=== PATIENT | male | born 1965 | race Hispanic/Latino ===

== ENCOUNTER 2018-01-04 17:04 | Emergency (ER) | payer OTHER ==
[2018-01-04 17:13] VITALS: BMI 33.9
[2018-01-04 17:21] VITALS: TEMP 97.4
[2018-01-04 18:04] LABS: BASO # 0.1 K/uL (0.0-0.2); BASO % 0.9 % (0.0-2.0); EOS # 0.2 K/uL (0.0-0.7); EOS % 1.9 % (0.0-4.0); LYMPH # 3.5 K/uL (1.0-4.3); LYMPH % 32.4 % (20.0-40.0); MEAN CELL VOLUME 83.3 fL (80.0-94.0); MEAN CORPUSCULAR HEMOGLOBIN 29.7 pg (27.0-31.0); MEAN CORPUSCULAR HGB CONC 35.6 g/dL (33.0-37.0); MEAN PLATELET VOLUME 7.5 fL (7.2-11.7); MONO # 1.1 K/uL (0.0-0.8); MONO % 9.9 % (0.0-10.0); NEUT # 5.9 K/uL (1.8-7.0); NEUT % 54.9 % (50.0-75.0); NRBC % 0.1 % (0.0-2.0); RBC 5.61 Mil/uL (4.40-5.90); RED CELL DISTRIBUTION WIDTH 13.7 % (11.5-14.5); WHITE BLOOD COUNT 10.8 K/uL (4.8-10.8)
[2018-01-04 18:05] LABS: HEMOGLOBIN 16.7 g/dL (12.0-18.0)
[2018-01-04 18:06] LABS: ALB/GLOB RATIO 1.1 (1.0-2.1); ALBUMIN 4.2 g/dL (3.5-5.0); ALT/SGPT 39 U/L (21-72); AST/SGOT 28 U/L (17-59); BLOOD UREA NITROGEN 11 mg/dL (9-20); CALCIUM 9.1 mg/dl (8.6-10.4); GFR AFRICAN-AMERICAN > 60; GFR NON-AFRICAN AMERICAN > 60; HDL CHOLESTEROL 41 mg/dL (30-70)
[2018-01-04 18:09] LABS: PARTIAL THROMBOPLASTIN TIME 35 SECONDS (21-34); PROTHROMBIN TIME 10.7 SECONDS (9.7-12.2)
[2018-01-04 18:12] LABS: D DIMER < 200 ng/mlDDU (0-243)
[2018-01-04 18:17] LABS: LDL CHOLESTEROL 126 mg/dL (0-129)
[2018-01-04 18:18] LABS: B-TYPE NATRIURETIC PEPTIDE 22.8 pg/mL (0-900); CK-MB 0.35 ng/mL (0.0-3.38)
[2018-01-04] MEDS ORDERED: Enalaprilat 2.5 MG/2 ML IVP STA (20:33)
[2018-01-04] MEDS ORDERED: Enalaprilat 2.5 MG/2 ML ONE (20:42)
[2018-01-04 22:32] VITALS: O2SAT 100
[2018-01-04 23:53] LABS: CK-MB 0.27 ng/mL (0.0-3.38)
[2018-01-05 00:02] VITALS: BP 122/92; PULSE 64; RESP 18
--- NOTE | 2018-01-05 00:02 | C.PDOC ---
Time Seen by Provider: 01/04/18 17:37 Chief Complaint (Nursing): Chest Pain History Per: Patient, Family Onset/Duration Of Symptoms: Hrs ([employer]) Current Symptoms Are (Timing): Better Severity: Moderate Quality: "Pain" Modifying Factors: Other Indicated Below Exacerbating Factors: None Alleviating Factors: None Additional History Per: Prior Records Past Medical History Reviewed: Historical Data, Nursing Documentation, Vital Signs Vital Signs: Last Vital Signs Temp 97.4 F L 01/04/18 17:12 Pulse 65 01/04/18 22:31 Resp 16 01/04/18 22:31 BP 136/94 H 01/04/18 22:31 Pulse Ox 100 01/04/18 22:31 - Medical History PMH: Asthma, COPD, HTN Family History: States: Unknown Family Hx - Social History Hx Tobacco Use: No Hx Alcohol Use: No Hx Substance Use: No - Immunization History Hx Tetanus Toxoid Vaccination: No Hx Influenza Vaccination: No Hx Pneumococcal Vaccination: No Review Of Systems Except As Marked, All Systems Reviewed And Found Negative. Constitutional: Negative for: Fever, Weakness Cardiovascular: Positive for: Chest Pain Respiratory: Negative for: Shortness of Breath, Hemoptysis Gastrointestinal: Negative for: Nausea, Vomiting, Abdominal Pain Skin: Negative for: Rash Neurological: Negative for: Weakness Physical Exam - Physical Exam Appears: Non-toxic, No Acute Distress Skin: Normal Color, Warm, Dry, No Rash Head: Atraumatic, Normacephalic Eye(s): bilateral: Normal Inspection, PERRL, EOMI Neck: Normal ROM, Supple Cardiovascular: Rhythm Regular Respiratory: Normal Breath Sounds, No Accessory Muscle Use Gastrointestinal/Abdominal: Soft, No Tenderness Extremity: Normal ROM, No Pedal Edema, No Calf Tenderness Neurological/Psych: Oriented x3, Normal Motor, Normal Sensation ED Course And Treatment - Laboratory Results Result Diagrams: 01/04/18 17:49 01/04/18 17:49 Lab Interpretation: No Acute Changes Interpretation Of Abnormal: CE's negative x 2 ECG: Interpreted By Me, Viewed By Me, Discussed With Funeral Home Attendant ECG Rhythm: Sinus Rhythm ECG Interpretation: No Acute Changes Rate From EC O2 Sat by Pulse Oximetry: 100 Pulse Ox Interpretation: Normal - Radiology CXR: Interpreted by Me, Viewed By Me CXR Interpretation: Yes: No Acute Disease Progress Note: Chest pain resolved at arrival to the ED and did not recurr. Pt recently had a negative exercise nuclear stress test. Reassessment Condition: Improved - Physician Consult Information Physician Contacted: Kayode Lyle (Cardiology) Outcome Of Conversation: He is covering Dr. Weiner. He reviewed the EKG and states that pt can be discharged home after negative 2nd set of CE's at 6 hours. Progress - Interventions Interventions:: Observation - Medications Administered Oral: Acetaminophen, Aspirin (taken by pt today) Intravenous: Antihypertensive - Data Reviewed Data Reviewed: Lab, Diagnostic imaging, EKG, Old records - Patient Status Patient status: Completely improved - Continuity of Care Discussed patient case with:: Patient, Family-HIPPA compliant, ED Nurse Discussed pt. case with organizational effectiveness consultant/specialty: Cardiology - Patient Plan Patient Plan: Discharge, F/U with PCP, Continue present meds Disposition Counseled Patient/Family Regarding: Studies Performed, Diagnosis, Need For Followup, Rx Given - Disposition Referrals: Flora Madrid MD [Staff Provider] - Evan Weiner MD [Staff Provider] - Disposition: HOME/ ROUTINE Disposition Time: 00:05 Condition: IMPROVED Additional Instructions: Follow up with your doctor. Return to the ER if you develop chest pain again, shortness of breath, worsening of symptoms or if you have any other concerns. Prescriptions: Enalapril Maleate [Vasotec] 5 mg PO DAILY #30 tab Instructions: Chest Pain (DC) - Clinical Impression Clinical Impression: Chest pain
--- NOTE | 2018-01-05 08:17 | RAD ---
Chest x-ray single frontal view History: Chest pain. Comparison: 01/04/2018 Findings: Mild atelectatic changes at the left lung base. Bilateral hilar prominence. Curvilinear nodular densities at the left lung apex may represent productive change from the ends of the 1st rib on the left. Clinical correlation. Heart size within normal limits. Impression: Mild atelectatic changes at the left lung base. Bilateral hilar prominence. Curvilinear nodular densities at the left lung apex may represent productive change from the ends of the 1st rib on the left. Clinical correlation.
--- NOTE | 2018-01-06 19:25 | CARD ---
APPROVED REPORT EKG Measurement Heart [id number] <Conclusion> Normal sinus rhythm Normal ECG
== END 2018-01-05 00:13 | disposition home or self-care (01) ==
LOC: C.ER 17:04
DX: R07.9 Chest pain, unspecified (principal); I10 Essential (primary) hypertension